=== PATIENT | male | born 1970 | race Caucasian/White ===

== ENCOUNTER 2022-01-20 21:52 | Emergency (ER) | payer OTHER ==
[~2022-01-20] VITALS: Ht 172.7 cm; Wt 84.8 kg
[2022-01-20] MEDS ORDERED: METRONIDAZOLE500 MG PO (23:33)
[2022-01-20] MEDS ORDERED: CIPRO500 MG PO (23:33)
== END 2022-01-20 23:46 | disposition home or self-care (01) ==
LOC: ED 21:52
DX: K57.32 Diverticulitis of large intestine without perforation or abscess without bleeding (principal)
CPT/HCPCS: 36415; 74177; 80053; 81001; 83690; 85025; 99284-25